=== PATIENT | female | born 1930 | race Caucasian/White ===

== ENCOUNTER 2016-10-10 04:14 | Inpatient (IN) | payer OTHER ==
[~2016-10-10] VITALS: Ht 165.1 cm; Wt 118.1 kg
[~2016-10-10 04:14] MED LIST: ANUSOL HC,ANUCO25 MG PR; COUMADIN,JANTOVE1 MG PO; COUMADIN2 MG PO; DULCOLAX5 MG PO; ERGOCALCIF50000 UNIT; K-DUR10 MEQ PO; LASIX40 MG PO; LOPRESSOR12.5 MG PO; LOPRESSOR25 MG PO; METRO GEL 1%60 GM TP; POTASSIUM PO; SYNTHROID125 MCG PO; SYNTHROID75 MCG PO; VITAMIN D1000 UNIT PO
[2016-10-10 05:20] LABS: INTER. NORMALIZED RATIO 1.1; PROTHROMBIN TIME 10.7 (9.2-11.2); PTT 28.4 (25-32)
[2016-10-10 05:21] LABS: CHLORIDE 105 mEq/L (99-109); POTASSIUM 3.7 mEq/L (3.7-5.4); SODIUM 142 mEq/L (136-147)
[2016-10-10 05:22] LABS: GLUCOSE 115 mg/dL (70-99)
[2016-10-10 05:24] LABS: ANION GAP 10 MEQ/L (2-14)
[2016-10-10 05:26] LABS: GFR ESTIMATE (CALCULATED) > 59 mL/min/
[2016-10-10 05:27] LABS: UREA NITROGEN (BUN) 13 mg/dL (9-23)
[2016-10-10 05:32] LABS: BASOPHIL COUNT 0.1 K/uL (0-0.1); EOSINOPHIL (%) 1.8 % (0-5); EOSINOPHIL COUNT 0.1 K/uL (0-0.3); HEMATOCRIT 41.8 % (36.0-46.0); IMMATURE GRANULOCYTE (%) 0.1 % (0.0-0.7); IMMATURE GRANULOCYTE COUNT 0.1 K/uL; LYMPHOCYTE COUNT 1.5 K/uL (1.0-2.8); MCH 31.7 PG (29.0-34.0); MCHC 33.3 G/DL (30.0-36.0); MCV 95.2 FL (83-99); MEAN PLAT.VOLUME 10.6 uM^3 (9.5-12.4); MONOCYTE (%) 6.3 % (3-12); MONOCYTE COUNT 0.5 K/uL (0-0.8); NEUTROPHIL (%) 71.9 % (45-76); NEUTROPHIL COUNT 5.6 K/uL (1.8-6.4); PLATELET COUNT 190 K/uL (156-360); RBC DIS.WIDTH-CV 13.8 % (11.8-14.6); RED BLOOD COUNT 4.39 M/uL (3.80-5.20); WHITE BLOOD COUNT 7.8 K/uL (4.1-10.2)
[2016-10-10] MEDS ORDERED: ZITHROMAX Z-PA250 MG PO (08:09)
[2016-10-10] MEDS ORDERED: MUCINEX1200 MG PO (08:09)
[2016-10-10] MEDS ORDERED: MOTRIN600 MG PO (08:09)
[2016-10-10 15:54] VITALS: BP 97/56
[2016-10-10 17:21] LABS: HDL CHOLESTEROL 58 MG/DL (Desirable>=50); LDL CHOLESTEROL 79 mg/dL (Desirable<100); NON-HDL CHOLESTEROL 104 mg/dL (Desirable<160); TOTAL CHOLESTEROL 162 mg/dL (Desirable<200); TRIGLYCERIDES 126 MG/DL (Normal: <150)
[2016-10-11 00:47] VITALS: BP 129/65
[2016-10-11 06:32] LABS: INTER. NORMALIZED RATIO 1.1; PROTHROMBIN TIME 11.2 (9.2-11.2)
[2016-10-11 07:37] VITALS: BP 133/77
[2016-10-11] MEDS ORDERED: WARFARIN SODIUM3 MG PO (12:59)
[2016-10-11 15:00] VITALS: BP 138/74
[2016-10-11 22:48] VITALS: BP 119/58
[2016-10-12 08:11] VITALS: BP 134/94
[2016-10-12 12:28] LABS: INTER. NORMALIZED RATIO 1.1; PROTHROMBIN TIME 10.9 (9.2-11.2)
[2016-10-12 15:47] VITALS: BP 156/92
[2016-10-12 17:34] LABS: ADD MIUA? YES; BACTERIA NONE SEEN /HPF; BILIRUBIN NEGATIVE; BLOOD NEGATIVE; COLOR STRAW ((YELLOW)); EPITHELIAL CELLS NONE SEEN /HPF; GLUCOSE (STRIP) NEGATIVE; KETONES NEGATIVE; LEUKOCYTES TRACE; MUCUS NONE SEEN /LPF; NITRITE NEGATIVE; PROTEIN (STRIP) NEGATIVE; RED BLOOD CELLS 0-5 /HPF (0-5); SPECIFIC GRAVITY 1.006 (1.000-1.030); UCUL ADDED? NO; UROBILINOGEN 0.2 MG/DL (0.2-1.0)
[2016-10-12 17:35] LABS: WHITE BLOOD CELLS 0-5 /HPF (0-5)
[2016-10-12 18:18] LABS: C DIFF TOXIN NEGATIVE (NEGATIVE); PROBE CHECK PASS; SPECIMEN PROCESSING CONTROL PASS
[2016-10-12 22:59] VITALS: BP 106/57
[2016-10-13 07:15] VITALS: BP 127/72
[2016-10-13 07:25] LABS: INTER. NORMALIZED RATIO 1.2; PROTHROMBIN TIME 12.7 (9.2-11.2)
[2016-10-13 15:03] VITALS: BP 132/73
[2016-10-13 22:11] VITALS: BP 109/55
[2016-10-14 07:21] LABS: INTER. NORMALIZED RATIO 1.3; PROTHROMBIN TIME 13.3 (9.2-11.2)
[2016-10-14 07:50] VITALS: BP 120/68
[2016-10-14 12:45] VITALS: BP 139/81
[2016-10-14 16:34] VITALS: BP 148/79
[2016-10-14 22:45] VITALS: BP 105/62
[2016-10-15 07:35] LABS: INTER. NORMALIZED RATIO 1.2; PROTHROMBIN TIME 12.6 (9.2-11.2)
[2016-10-15 07:59] VITALS: BP 132/70
[2016-10-15 16:14] VITALS: BP 159/96
[2016-10-15 18:11] LABS: ADD MIUA? YES; BILIRUBIN NEGATIVE; BLOOD MODERATE; COLOR YELLOW ((YELLOW)); GLUCOSE (STRIP) NEGATIVE; KETONES 15; LEUKOCYTES NEGATIVE; NITRITE NEGATIVE; PH, URINE 5.5 (5-8); PROTEIN (STRIP) TRACE; SPECIFIC GRAVITY 1.015 (1.000-1.030)
[2016-10-15 18:30] LABS: BACTERIA 1+ /HPF; EPITHELIAL CELLS RARE /HPF; MUCUS TRACE /LPF; RED BLOOD CELLS 0-5 /HPF (0-5); UCUL ADDED? NO; WHITE BLOOD CELLS 0-5 /HPF (0-5)
[2016-10-15 22:57] VITALS: BP 105/58
[2016-10-16 00:13] LABS: EOSINOPHIL (%) 0.1 % (0-5); HEMATOCRIT 39.4 % (36.0-46.0); IMMATURE GRANULOCYTE (%) 0.5 % (0.0-0.7); IMMATURE GRANULOCYTE COUNT 0.6 K/uL; LYMPHOCYTE COUNT 1.7 K/uL (1.0-2.8); MCH 31.7 PG (29.0-34.0); MCV 93.1 FL (83-99); MEAN PLAT.VOLUME 10.6 uM^3 (9.5-12.4); MONOCYTE (%) 14.6 % (3-12); MONOCYTE COUNT 1.6 K/uL (0-0.8); NEUTROPHIL (%) 69.2 % (45-76); NEUTROPHIL COUNT 7.8 K/uL (1.8-6.4); PLATELET COUNT 204 K/uL (156-360); RBC DIS.WIDTH-CV 12.9 % (11.8-14.6); RBC DIS.WIDTH-SD 42.7 % (39-53); RED BLOOD COUNT 4.23 M/uL (3.80-5.20); WHITE BLOOD COUNT 11.2 K/uL (4.1-10.2)
[2016-10-16 00:22] LABS: POTASSIUM 3.2 mEq/L (3.7-5.4); SODIUM 135 mEq/L (136-147)
[2016-10-16 00:24] LABS: GLUCOSE 108 mg/dL (70-99)
[2016-10-16 00:25] LABS: ANION GAP 13 MEQ/L (2-14); CHLORIDE 93 mEq/L (99-109)
[2016-10-16 00:28] LABS: GFR ESTIMATE (CALCULATED) 50 mL/min/
[2016-10-16 00:29] LABS: UREA NITROGEN (BUN) 20 mg/dL (9-23)
[2016-10-16 06:38] LABS: INTER. NORMALIZED RATIO 1.4
[2016-10-16 08:40] VITALS: BP 130/75
[2016-10-16 16:00] VITALS: BP 134/68
[2016-10-16 22:55] VITALS: BP 98/56
[2016-10-16 23:13] VITALS: BP 102/60
[2016-10-17 06:56] LABS: INTER. NORMALIZED RATIO 1.3; PROTHROMBIN TIME 13.8 (9.2-11.2)
[2016-10-17 08:03] VITALS: BP 102/58
[2016-10-17 16:15] VITALS: BP 100/52
[2016-10-17 23:06] VITALS: BP 101/63
[2016-10-18 08:26] VITALS: BP 103/62
[2016-10-18] MEDS ORDERED: TYLENOL REGULA325 MG PO (11:56)
[2016-10-18] MEDS ORDERED: ELIQUIS5 MG PO (12:00)
== END 2016-10-18 14:15 | DRG 554 ==
LOC: EME 04:14 → 5EAST 12:55 → EDOF 12:55 → 5EAST 12:55
PROVIDERS: Internal Medicine; Personal Emergency Response Attendant
DX: M17.0 Bilateral primary osteoarthritis of knee (principal); I82.511 Chronic embolism and thrombosis of right femoral vein; F05 Delirium due to known physiological condition; Z68.41 Body mass index [BMI] 40.0-44.9, adult; J01.90 Acute sinusitis, unspecified; G47.33 Obstructive sleep apnea (adult) (pediatric); M71.22 Synovial cyst of popliteal space [Baker], left knee; I10 Essential (primary) hypertension; E03.9 Hypothyroidism, unspecified; E66.9 Obesity, unspecified; R09.02 Hypoxemia; F03.90 Unspecified dementia, unspecified severity, without behavioral disturbance, psychotic disturbance, mood disturbance, and anxiety; M25.462 Effusion, left knee; F41.9 Anxiety disorder, unspecified; Z79.01 Long term (current) use of anticoagulants; Z96.651 Presence of right artificial knee joint; Z99.3 Dependence on wheelchair
CPT/HCPCS: 70450; 71020; 73110; 73560; 73721; 80048; 80061; 81003; 84439; 84443; 85025; 85610; 85730; 87493; 93005; 93970; 93971; 94799; 99281; 99285; J1885; J2060; J2270; J2405; J7030

== ENCOUNTER 2016-10-19 14:58 | Observation (INO) | payer OTHER ==
[~2016-10-19] VITALS: Ht 162.6 cm; Wt 109.0 kg
[~2016-10-19 14:58] MED LIST changes: +ELIQUIS5 MG PO; +MOTRIN600 MG PO; +MUCINEX1200 MG PO; +TYLENOL REGULA325 MG PO; +WARFARIN SODIUM3 MG PO; +ZITHROMAX Z-PA250 MG PO
[2016-10-19 16:24] LABS: EOSINOPHIL (%) 0.9 % (0-5); EOSINOPHIL COUNT 0.1 K/uL (0-0.3); HEMATOCRIT 42.7 % (36.0-46.0); IMMATURE GRANULOCYTE (%) 0.6 % (0.0-0.7); IMMATURE GRANULOCYTE COUNT 0.4 K/uL; LYMPHOCYTE COUNT 1.2 K/uL (1.0-2.8); MCH 31.2 PG (29.0-34.0); MCHC 33.5 G/DL (30.0-36.0); MCV 93.2 FL (83-99); MEAN PLAT.VOLUME 9.7 uM^3 (9.5-12.4); MONOCYTE (%) 12.1 % (3-12); MONOCYTE COUNT 0.8 K/uL (0-0.8); NEUTROPHIL (%) 68.4 % (45-76); NEUTROPHIL COUNT 4.7 K/uL (1.8-6.4); RBC DIS.WIDTH-CV 13.4 % (11.8-14.6); RBC DIS.WIDTH-SD 44.5 % (39-53); RED BLOOD COUNT 4.58 M/uL (3.80-5.20)
[2016-10-19 16:25] LABS: PLATELET COUNT 380 K/uL (156-360); WHITE BLOOD COUNT 6.9 K/uL (4.1-10.2)
[2016-10-19 16:31] LABS: CHLORIDE 93 mEq/L (99-109); SODIUM 139 mEq/L (136-147)
[2016-10-19 16:34] LABS: GLUCOSE 101 mg/dL (70-99)
[2016-10-19 16:35] LABS: ANION GAP 17 MEQ/L (2-14); TOTAL BILIRUBIN 0.9 mg/dL (0.0-1.0)
[2016-10-19 16:37] LABS: ALKALINE PHOSPHATASE 117 IU/L (3-129); GFR ESTIMATE (CALCULATED) 45 mL/min/
[2016-10-19 16:38] LABS: POTASSIUM 4.1 mEq/L (3.7-5.4)
[2016-10-19 16:39] LABS: UREA NITROGEN (BUN) 43 mg/dL (9-23)
[2016-10-19 18:50] LABS: ADD MIUA? YES; BILIRUBIN NEGATIVE; BLOOD SMALL; COLOR YELLOW ((YELLOW)); GLUCOSE (STRIP) NEGATIVE; KETONES NEGATIVE; LEUKOCYTES NEGATIVE; NITRITE NEGATIVE; PROTEIN (STRIP) NEGATIVE; SPECIFIC GRAVITY 1.011 (1.000-1.030); UROBILINOGEN 0.2 MG/DL (0.2-1.0)
[2016-10-19 19:00] LABS: BACTERIA NONE SEEN /HPF; EPITHELIAL CELLS 1+ /HPF; HYALINE CASTS 0-5 /LPF; MUCUS TRACE /LPF; RED BLOOD CELLS 0-5 /HPF (0-5); WHITE BLOOD CELLS 0-5 /HPF (0-5)
[2016-10-20] MEDS ORDERED: POTASSIUM CHLO10 ME4 PO (01:43)
[2016-10-20] MEDS ORDERED: FUROSEMIDE40 MG PO (01:43)
[2016-10-20] MEDS ORDERED: LEVOTHYROXINE125 MCG PO (01:43)
[2016-10-20] MEDS ORDERED: METOPROLOL TART25 MG PO (01:44)
[2016-10-20] MEDS ORDERED: ELIQUIS5 MG PO (01:44)
[2016-10-20] MEDS ORDERED: ACETAMINOPHEN325 M1 PO (01:45)
[2016-10-20] MEDS ORDERED: DULCOLAX10 MG PR (01:45)
[2016-10-20] MEDS ORDERED: FLEET ENEMA-AD118 ML PR (01:46)
[2016-10-20] MEDS ORDERED: MILK OF MAGN PO (01:48)
[2016-10-20] MEDS ORDERED: TRAMADOL HCL50 MG PO (01:48)
[2016-10-20 03:30] VITALS: BP 166/97
[2016-10-20 04:25] VITALS: BP 166/97
[2016-10-20 11:47] VITALS: BP 117/67
[2016-10-20 17:41] VITALS: BP 122/77
[2016-10-20 18:24] LABS: C DIFF TOXIN ND (NEGATIVE)
[2016-10-20 20:01] VITALS: BP 101/51
[2016-10-21 00:10] VITALS: BP 101/61
[2016-10-21 05:40] VITALS: BP 179/80
[2016-10-21 08:43] VITALS: BP 168/82
[2016-10-21 11:49] LABS: POINT-OF-CARE METER ID UU13113702
[2016-10-21 11:54] VITALS: BP 154/82
[2016-10-21] MEDS ORDERED: LEVO-T137 MCG PO (15:55)
== END 2016-10-21 17:41 ==
LOC: EME → EDBD 14:58 → 3EAST 10-20 00:47 → EDOF 10-20 00:47 → 3EAST 10-20 03:14
PROVIDERS: Emergency Medicine; Internal Medicine
DX: R41.82 Altered mental status, unspecified (principal); E86.0 Dehydration; I82.511 Chronic embolism and thrombosis of right femoral vein; E66.9 Obesity, unspecified; Z68.41 Body mass index [BMI] 40.0-44.9, adult; M17.11 Unilateral primary osteoarthritis, right knee; I10 Essential (primary) hypertension; G47.30 Sleep apnea, unspecified
CPT/HCPCS: 70450; 71010; 80053; 81003; 82948; 83605; 84439; 84443; 85025; 87493; 94799; 99281; 99285; G0378; J7030

== ENCOUNTER 2016-11-18 04:33 | Emergency (ER) | payer OTHER ==
[~2016-11-18] VITALS: Ht 165.1 cm; Wt 101.6 kg
[~2016-11-18 04:33] MED LIST changes: +ACETAMINOPHEN325 M1 PO; +DULCOLAX10 MG PR; +FLEET ENEMA-AD118 ML PR; +FUROSEMIDE40 MG PO; +LEVO-T137 MCG PO; +LEVOTHYROXINE125 MCG PO; +METOPROLOL TART25 MG PO; +MILK OF MAGN PO; +POTASSIUM CHLO10 ME4 PO; +TRAMADOL HCL50 MG PO
[2016-11-18 04:55] LABS: EOSINOPHIL (%) 1.6 % (0-5); EOSINOPHIL COUNT 0.1 K/uL (0-0.3); IMMATURE GRANULOCYTE (%) 0.4 % (0.0-0.7); INSTRUMENT ABS NEUTROPHIL CT 3.1 K/uL; LYMPHOCYTE COUNT 1.9 K/uL (1.0-2.8); MCH 30.4 PG (29.0-34.0); MCHC 32.2 G/DL (30.0-36.0); MCV 94.5 FL (83-99); MEAN PLAT.VOLUME 10.3 uM^3 (9.5-12.4); MONOCYTE (%) 7.6 % (3-12); MONOCYTE COUNT 0.4 K/uL (0-0.8); NEUTROPHIL (%) 55.7 % (45-76); NEUTROPHIL COUNT 3.1 K/uL (1.8-6.4); RBC DIS.WIDTH-CV 13.4 % (11.8-14.6); RBC DIS.WIDTH-SD 46.5 % (39-53); RED BLOOD COUNT 4.34 M/uL (3.80-5.20); WHITE BLOOD COUNT 5.5 K/uL (4.1-10.2)
[2016-11-18 05:05] LABS: PROTHROMBIN TIME 10.5 (9.2-11.2); PTT 27.3 (25-32)
[2016-11-18 05:12] LABS: CHLORIDE 109 mEq/L (99-109); POTASSIUM 4.2 mEq/L (3.7-5.4); SODIUM 141 mEq/L (136-147)
[2016-11-18 05:14] LABS: GLUCOSE 122 mg/dL (70-99); TROP-I INTERPRETATION NEGATIVE; TROPONIN-I < 0.01 ng/mL (0.0-0.30)
[2016-11-18 05:16] LABS: ANION GAP 11 MEQ/L (2-14); TOTAL BILIRUBIN 0.8 mg/dL (0.0-1.0)
[2016-11-18 05:18] LABS: ALKALINE PHOSPHATASE 61 IU/L (3-129); GFR ESTIMATE (CALCULATED) > 59 mL/min/
[2016-11-18 05:19] LABS: UREA NITROGEN (BUN) 13 mg/dL (9-23)
[2016-11-18 05:21] LABS: LIPASE 16 U/L (1.0-51.0)
[2016-11-18 06:17] LABS: PLATELET COUNT ND K/uL (156-360)
[2016-11-18 06:19] VITALS: BP 114/82
[2016-11-18] MEDS ORDERED: PEPCID20 MG PO (06:25)
== END 2016-11-18 06:37 | disposition home or self-care (01) ==
LOC: EME → EDBD 04:33 → EME 06:37
PROVIDERS: Emergency Medicine
DX: N95.0 Postmenopausal bleeding (principal); K92.2 Gastrointestinal hemorrhage, unspecified; I10 Essential (primary) hypertension; I50.9 Heart failure, unspecified; Z86.718 Personal history of other venous thrombosis and embolism; Z79.01 Long term (current) use of anticoagulants
CPT/HCPCS: 74177; 76856; 80053; 81003; 83690; 84484; 85025; 85610; 85730; 86850; 86900; 86901; 99281; 99284; J7030

== ENCOUNTER 2017-06-01 14:51 | Emergency (ER) | payer OTHER ==
[~2017-06-01] VITALS: Ht 160 cm; Wt 116.8 kg
[~2017-06-01 14:51] MED LIST changes: +PEPCID20 MG PO
[2017-06-01 15:23] LABS: HEMATOCRIT 38.6 % (36.0-46.0); MCHC 32.6 G/DL (30.0-36.0); MCV 91.9 FL (83-99); MEAN PLAT.VOLUME 9.9 uM^3 (9.5-12.4); PLATELET COUNT 212 K/uL (156-360); RBC DIS.WIDTH-CV 13.2 % (11.8-14.6); RBC DIS.WIDTH-SD 44.5 % (39-53); WHITE BLOOD COUNT 5.7 K/uL (4.1-10.2)
[2017-06-01 15:35] LABS: CHLORIDE 102 mEq/L (99-109); POTASSIUM 2.9 mEq/L (3.7-5.4); SODIUM 141 mEq/L (136-147)
[2017-06-01 15:36] LABS: GLUCOSE 94 mg/dL (70-99)
[2017-06-01 15:38] LABS: ANION GAP 11 MEQ/L (2-14)
[2017-06-01 15:40] LABS: GFR ESTIMATE (CALCULATED) > 59 mL/min/
[2017-06-01 15:41] LABS: UREA NITROGEN (BUN) 12 mg/dL (9-23)
[2017-06-01 20:51] VITALS: BP 145/80
== END 2017-06-01 20:51 | disposition home or self-care (01) ==
LOC: EME 14:51
PROVIDERS: Emergency Medicine
DX: R60.0 Localized edema (principal); I11.0 Hypertensive heart disease with heart failure; I50.9 Heart failure, unspecified; Z86.718 Personal history of other venous thrombosis and embolism; Z88.8 Allergy status to other drugs, medicaments and biological substances
CPT/HCPCS: 71010; 71260; 74177; 80048; 83880; 85027; 93005; 99281; 99285

== ENCOUNTER 2017-07-04 23:25 | Observation (INO) | payer OTHER ==
[~2017-07-04] VITALS: Ht 165.1 cm; Wt 119.2 kg
[2017-07-05 00:05] LABS: HEMATOCRIT 37.7 % (36.0-46.0); MCH 30.1 PG (29.0-34.0); MCHC 32.6 G/DL (30.0-36.0); MCV 92.2 FL (83-99); MEAN PLAT.VOLUME 9.9 uM^3 (9.5-12.4); PLATELET COUNT 199 K/uL (156-360); RBC DIS.WIDTH-CV 13.5 % (11.8-14.6); RBC DIS.WIDTH-SD 46.7 % (39-53); RED BLOOD COUNT 4.09 M/uL (3.80-5.20); WHITE BLOOD COUNT 6.5 K/uL (4.1-10.2)
[2017-07-05 00:15] LABS: CHLORIDE 106 mEq/L (99-109); PROTHROMBIN TIME 11.8 SEC (10.2-12.9); SODIUM 142 mEq/L (136-147)
[2017-07-05 00:18] LABS: GLUCOSE 111 mg/dL (70-99); PTT 29.5 SEC (25-37)
[2017-07-05 00:19] LABS: ANION GAP 8 MEQ/L (2-14)
[2017-07-05 00:20] LABS: TOTAL BILIRUBIN 0.6 mg/dL (0.0-1.0)
[2017-07-05 00:21] LABS: ALKALINE PHOSPHATASE 81 IU/L (3-129); GFR ESTIMATE (CALCULATED) > 59 mL/min/
[2017-07-05 00:22] LABS: UREA NITROGEN (BUN) 10 mg/dL (9-23)
[2017-07-05 00:24] LABS: TROP-I INTERPRETATION NEGATIVE; TROPONIN-I < 0.01 ng/mL (0.0-0.30)
[2017-07-05 00:25] LABS: LIPASE 17 U/L (1.0-51.0)
[2017-07-05 02:42] LABS: ADD MIUA? YES; BILIRUBIN NEGATIVE; BLOOD NEGATIVE; COLOR YELLOW ((YELLOW)); GLUCOSE (STRIP) NEGATIVE; KETONES NEGATIVE; LEUKOCYTES NEGATIVE; NITRITE NEGATIVE; PROTEIN (STRIP) NEGATIVE; SPECIFIC GRAVITY 1.016 (1.000-1.030); UROBILINOGEN 0.2 MG/DL (0.2-1.0)
[2017-07-05 02:52] LABS: BACTERIA NONE SEEN /HPF; EPITHELIAL CELLS RARE /HPF; MUCUS TRACE /LPF; RED BLOOD CELLS 0-5 /HPF (0-5); UCUL ADDED? NO; WHITE BLOOD CELLS 0-5 /HPF (0-5)
[2017-07-05 05:01] VITALS: BP 133/84
[2017-07-05 07:30] VITALS: BP 133/92
[2017-07-05] MEDS ORDERED: ALDACTONE50 MG PO (10:48)
[2017-07-05] MEDS ORDERED: MECLIZINE HCL25 MG PO (10:49)
[2017-07-05 11:10] VITALS: BP 106/65
[2017-07-05 12:17] LABS: ANION GAP 8 MEQ/L (2-14); CHLORIDE 107 MEQ/L (99-109); GFR ESTIMATE (CALCULATED) > 59 mL/min/; GLUCOSE 94 mg/dL (70-99); POTASSIUM 3.6 MEQ/L (3.7-5.4); SAMPLE HEMOLYSIS CHECK 0; SAMPLE ICTERIC CHECK 0; SAMPLE LIPEMIA CHECK 0; SODIUM 141 MEQ/L (136-147); UREA NITROGEN (BUN) 8 mg/dL (9-23)
[2017-07-05 15:50] VITALS: BP 128/71
[2017-07-05 20:00] VITALS: BP 135/75
[2017-07-06 03:00] VITALS: BP 130/70
[2017-07-06 08:08] VITALS: BP 143/74
== END 2017-07-06 15:48 | disposition home or self-care (01) ==
LOC: EME → EDBD 23:25 → EDOF 07-05 03:30 → ENRESERV 07-05 03:42 → 5WEST 07-05 04:46
PROVIDERS: Emergency Medicine; Family Medicine
DX: E87.6 Hypokalemia (principal); R42 Dizziness and giddiness; F03.90 Unspecified dementia, unspecified severity, without behavioral disturbance, psychotic disturbance, mood disturbance, and anxiety; R60.0 Localized edema; E03.9 Hypothyroidism, unspecified; Z91.81 History of falling; S00.83XA Contusion of other part of head, initial encounter; Z95.828 Presence of other vascular implants and grafts; I11.0 Hypertensive heart disease with heart failure; I50.9 Heart failure, unspecified; G89.29 Other chronic pain; Z96.651 Presence of right artificial knee joint; M19.90 Unspecified osteoarthritis, unspecified site; E66.9 Obesity, unspecified; Z86.718 Personal history of other venous thrombosis and embolism; Z90.49 Acquired absence of other specified parts of digestive tract; Z79.01 Long term (current) use of anticoagulants; Z88.5 Allergy status to narcotic agent
CPT/HCPCS: 70450; 80048; 80053; 81003; 83690; 84484; 85027; 85610; 85730; 93005; 94799; 99281; 99285; G0378; J3480; J7030

== ENCOUNTER 2017-07-09 12:01 | Inpatient (IN) | payer OTHER ==
[~2017-07-09] VITALS: Ht 165.1 cm; Wt 109.1 kg
[~2017-07-09 12:01] MED LIST changes: +ALDACTONE50 MG PO; +MECLIZINE HCL25 MG PO
[2017-07-09 12:42] LABS: ADD MIUA? YES; BILIRUBIN NEGATIVE; BLOOD SMALL; COLOR YELLOW ((YELLOW)); GLUCOSE (STRIP) NEGATIVE; KETONES 20; LEUKOCYTES MODERATE; NITRITE NEGATIVE; PROTEIN (STRIP) 30; SPECIFIC GRAVITY 1.013 (1.000-1.030); UROBILINOGEN 0.2 MG/DL (0.2-1.0)
[2017-07-09 12:48] LABS: BACTERIA RARE /HPF; EPITHELIAL CELLS 3+ /HPF; MUCUS TRACE /LPF; RED BLOOD CELLS 0-5 /HPF (0-5); UCUL ADDED? YES
[2017-07-09] MEDS ORDERED: IBUPROFEN600 MG PO (13:32)
[2017-07-09] MEDS ORDERED: WARFARIN SODIUM2 MG PO (13:32)
[2017-07-09 13:38] LABS: BASOPHIL COUNT 0.1 K/uL (0-0.1); EOSINOPHIL (%) 0.5 % (0-5); HEMATOCRIT 42.3 % (36.0-46.0); IMMATURE GRANULOCYTE COUNT 0.1 K/uL; MCHC 32.4 G/DL (30.0-36.0); MCV 92.8 FL (83-99); MEAN PLAT.VOLUME 10.2 uM^3 (9.5-12.4); MONOCYTE (%) 8.7 % (3-12); MONOCYTE COUNT 0.7 K/uL (0-0.8); PLATELET COUNT 225 K/uL (156-360); RBC DIS.WIDTH-CV 13.5 % (11.8-14.6); RBC DIS.WIDTH-SD 46.2 % (39-53); RED BLOOD COUNT 4.56 M/uL (3.80-5.20); WHITE BLOOD COUNT 7.8 K/uL (4.1-10.2)
[2017-07-09 14:02] LABS: CHLORIDE 100 mEq/L (99-109); SODIUM 139 mEq/L (136-147)
[2017-07-09 14:04] LABS: GLUCOSE 87 mg/dL (70-99)
[2017-07-09 14:05] LABS: ANION GAP 12 MEQ/L (2-14)
[2017-07-09 14:07] LABS: GFR ESTIMATE (CALCULATED) > 59 mL/min/
[2017-07-09 14:08] LABS: UREA NITROGEN (BUN) 15 mg/dL (9-23)
[2017-07-09 14:10] LABS: POTASSIUM 4.8 mEq/L (3.7-5.4)
[2017-07-09 14:32] LABS: AMPHETAMINE NEGATIVE (500 ng/mL); BARBITURATES NEGATIVE (200 ng/mL); BENZODIAZEPINES NEGATIVE (150 ng/mL); COCAINE NEGATIVE (150 ng/mL); INTERNAL CONTROLS VALID? YES; METHADONE NEGATIVE (200 ng/mL); METHAMPHETAMINE NEGATIVE (500 ng/mL); OPIATES (MORPHINE) NEGATIVE (100 ng/mL); OXYCODONE PRESUMPTIVE POSITIVE (100 ng/mL); PHENCYCLIDINE NEGATIVE (25 ng/mL); PROPOXYPHENE NEGATIVE (300 ng/mL); THC CANNABINOIDS NEGATIVE (50 ng/mL); TRICYCLIC ANTIDEPRESSANTS NEGATIVE (300 ng/mL)
[2017-07-09] MEDS ORDERED: LEVOTHYROXINE125 MCG PO (14:43)
[2017-07-09] MEDS ORDERED: FUROSEMIDE40 MG PO ×2 (14:45→14:46)
[2017-07-09 17:30] VITALS: BP 162/88
[2017-07-10 06:06] LABS: HEMATOCRIT 40.5 % (36.0-46.0); MCH 30.2 PG (29.0-34.0); MCHC 33.1 G/DL (30.0-36.0); MCV 91.4 FL (83-99); RBC DIS.WIDTH-CV 13.7 % (11.8-14.6); RBC DIS.WIDTH-SD 45.6 % (39-53); RED BLOOD COUNT 4.43 M/uL (3.80-5.20); WHITE BLOOD COUNT 7.5 K/uL (4.1-10.2)
[2017-07-10 06:13] LABS: EOSINOPHIL (%) 1.5 % (0-5); EOSINOPHIL COUNT 0.1 K/uL (0-0.3); IMMATURE GRANULOCYTE (%) 0.4 % (0.0-0.7); INSTRUMENT ABS NEUTROPHIL CT 5.3 K/uL; LYMPHOCYTE COUNT 1.3 K/uL (1.0-2.8); MONOCYTE COUNT 0.8 K/uL (0-0.8); NEUTROPHIL (%) 70.7 % (45-76); NEUTROPHIL COUNT 5.3 K/uL (1.8-6.4)
[2017-07-10 06:28] LABS: ANION GAP 11 MEQ/L (2-14); CHLORIDE 102 MEQ/L (99-109); GFR ESTIMATE (CALCULATED) > 59 mL/min/; GLUCOSE 92 mg/dL (70-99); SAMPLE HEMOLYSIS CHECK 0; SAMPLE ICTERIC CHECK 0; SAMPLE LIPEMIA CHECK 0; SODIUM 140 MEQ/L (136-147); UREA NITROGEN (BUN) 17 mg/dL (9-23)
[2017-07-10 08:04] VITALS: BP 126/70
[2017-07-10 19:47] LABS: PLAT.SUFFICIENCY ADEQUATE; PLATELET CLUMPS PRESENT - PLATELET COUNT APPEARS ADQ.
[2017-07-10 19:48] LABS: PLATELET COUNT UNABLE TO REPORT K/uL (156-360)
[2017-07-11 06:02] LABS: BASOPHIL COUNT 0.1 K/uL (0-0.1); EOSINOPHIL (%) 2.6 % (0-5); EOSINOPHIL COUNT 0.1 K/uL (0-0.3); HEMATOCRIT 49.4 % (36.0-46.0); IMMATURE GRANULOCYTE (%) 0.2 % (0.0-0.7); LYMPHOCYTE COUNT 1.2 K/uL (1.0-2.8); MCH 29.4 PG (29.0-34.0); MCV 91.8 FL (83-99); MEAN PLAT.VOLUME 10.5 uM^3 (9.5-12.4); MONOCYTE (%) 11.9 % (3-12); MONOCYTE COUNT 0.6 K/uL (0-0.8); NEUTROPHIL (%) 60.3 % (45-76); RBC DIS.WIDTH-CV 13.9 % (11.8-14.6); RBC DIS.WIDTH-SD 47.3 % (39-53)
[2017-07-11 06:03] LABS: PLATELET COUNT 182 K/uL (156-360); RED BLOOD COUNT 5.38 M/uL (3.80-5.20)
[2017-07-11 06:20] LABS: ANION GAP 11 MEQ/L (2-14); CHLORIDE 102 MEQ/L (99-109); GFR ESTIMATE (CALCULATED) 50 mL/min/; GLUCOSE 110 mg/dL (70-99); SAMPLE HEMOLYSIS CHECK 0; SAMPLE ICTERIC CHECK 0; SAMPLE LIPEMIA CHECK 0; SODIUM 141 MEQ/L (136-147); UREA NITROGEN (BUN) 20 mg/dL (9-23)
[2017-07-11 07:37] VITALS: BP 126/68
[2017-07-11 11:33] VITALS: BP 110/78
[2017-07-11 20:23] VITALS: BP 128/72
[2017-07-12 00:36] VITALS: BP 128/74
[2017-07-12 06:50] LABS: ANION GAP 10 MEQ/L (2-14); CHLORIDE 100 MEQ/L (99-109); GFR ESTIMATE (CALCULATED) 56 mL/min/; GLUCOSE 104 mg/dL (70-99); POTASSIUM 3.5 MEQ/L (3.7-5.4); SAMPLE HEMOLYSIS CHECK 0; SAMPLE ICTERIC CHECK 0; SAMPLE LIPEMIA CHECK 0; SODIUM 138 MEQ/L (136-147); UREA NITROGEN (BUN) 20 mg/dL (9-23)
[2017-07-12 07:09] LABS: BASOPHIL COUNT 0.1 K/uL (0-0.1); EOSINOPHIL (%) 2.6 % (0-5); EOSINOPHIL COUNT 0.2 K/uL (0-0.3); HEMATOCRIT 39.2 % (36.0-46.0); IMMATURE GRANULOCYTE (%) 0.2 % (0.0-0.7); INSTRUMENT ABS NEUTROPHIL CT 3.1 K/uL; LYMPHOCYTE COUNT 1.9 K/uL (1.0-2.8); MCHC 32.7 G/DL (30.0-36.0); MCV 91.8 FL (83-99); MEAN PLAT.VOLUME 10.2 uM^3 (9.5-12.4); MONOCYTE (%) 10.4 % (3-12); MONOCYTE COUNT 0.6 K/uL (0-0.8); NEUTROPHIL (%) 53.8 % (45-76); NEUTROPHIL COUNT 3.1 K/uL (1.8-6.4); PLATELET COUNT 253 K/uL (156-360); RBC DIS.WIDTH-CV 13.8 % (11.8-14.6); RBC DIS.WIDTH-SD 46.9 % (39-53); RED BLOOD COUNT 4.27 M/uL (3.80-5.20); WHITE BLOOD COUNT 5.8 K/uL (4.1-10.2)
[2017-07-12 07:33] VITALS: BP 126/69
[2017-07-12 16:04] VITALS: BP 132/64
[2017-07-13 00:19] VITALS: BP 140/70
[2017-07-13 06:38] LABS: ANION GAP 12 MEQ/L (2-14); CHLORIDE 104 MEQ/L (99-109); GFR ESTIMATE (CALCULATED) > 59 mL/min/; GLUCOSE 112 mg/dL (70-99); POTASSIUM 3.8 MEQ/L (3.7-5.4); SAMPLE HEMOLYSIS CHECK 0; SAMPLE ICTERIC CHECK 0; SAMPLE LIPEMIA CHECK 0; SODIUM 142 MEQ/L (136-147); UREA NITROGEN (BUN) 18 mg/dL (9-23)
[2017-07-13 08:23] VITALS: BP 109/62
[2017-07-13 16:46] VITALS: BP 144/64
[2017-07-13 19:40] VITALS: BP 125/78
[2017-07-13 23:40] VITALS: BP 109/65
[2017-07-14 04:00] VITALS: BP 125/75
[2017-07-14 06:52] VITALS: BP 118/64
[2017-07-14 15:21] VITALS: BP 124/72
[2017-07-14 21:10] VITALS: BP 102/64
[2017-07-15 00:01] VITALS: BP 120/64
[2017-07-15 06:14] LABS: BASOPHIL COUNT 0.1 K/uL (0-0.1); EOSINOPHIL COUNT 0.3 K/uL (0-0.3); HEMATOCRIT 38.7 % (36.0-46.0); IMMATURE GRANULOCYTE (%) 0.2 % (0.0-0.7); INSTRUMENT ABS NEUTROPHIL CT 2.5 K/uL; LYMPHOCYTE COUNT 1.9 K/uL (1.0-2.8); MCH 29.3 PG (29.0-34.0); MCHC 31.5 G/DL (30.0-36.0); MEAN PLAT.VOLUME 9.9 uM^3 (9.5-12.4); MONOCYTE (%) 9.4 % (3-12); MONOCYTE COUNT 0.5 K/uL (0-0.8); NEUTROPHIL (%) 47.8 % (45-76); NEUTROPHIL COUNT 2.5 K/uL (1.8-6.4); PLATELET COUNT 255 K/uL (156-360); RBC DIS.WIDTH-CV 13.7 % (11.8-14.6); RBC DIS.WIDTH-SD 46.8 % (39-53); RED BLOOD COUNT 4.16 M/uL (3.80-5.20); WHITE BLOOD COUNT 5.2 K/uL (4.1-10.2)
[2017-07-15 06:42] LABS: ANION GAP 7 MEQ/L (2-14); CHLORIDE 106 MEQ/L (99-109); GFR ESTIMATE (CALCULATED) 50 mL/min/; GLUCOSE 105 mg/dL (70-99); POTASSIUM 4.4 MEQ/L (3.7-5.4); SAMPLE HEMOLYSIS CHECK 0; SAMPLE ICTERIC CHECK 0; SAMPLE LIPEMIA CHECK 0; SODIUM 140 MEQ/L (136-147); UREA NITROGEN (BUN) 23 mg/dL (9-23)
[2017-07-15 06:55] VITALS: BP 120/70
[2017-07-15] MEDS ORDERED: ELIQUIS5 MG PO (12:35)
[2017-07-15] MEDS ORDERED: HALDOL2 MG PO ×2 (12:36)
[2017-07-15] MEDS ORDERED: TRAMADOL HCL50 MG PO (12:37)
[2017-07-15 15:15] VITALS: BP 149/81
[2017-07-15 19:54] VITALS: BP 120/80
[2017-07-15 23:30] VITALS: BP 129/77
[2017-07-16 07:33] VITALS: BP 155/83
== END 2017-07-16 11:02 | DRG 690 ==
LOC: EME 12:01 → 5EAST 15:36 → EDOF 15:36 → ENRESERV 15:41 → 5EAST 17:04 → ENPENDDIS 07-16 11:30
PROVIDERS: Emergency Medicine; Family Medicine
DX: N39.0 Urinary tract infection, site not specified (principal); R00.0 Tachycardia, unspecified; R44.1 Visual hallucinations; M17.12 Unilateral primary osteoarthritis, left knee; F05 Delirium due to known physiological condition; F01.50 Vascular dementia, unspecified severity, without behavioral disturbance, psychotic disturbance, mood disturbance, and anxiety; Z96.651 Presence of right artificial knee joint; S60.222A Contusion of left hand, initial encounter; E03.9 Hypothyroidism, unspecified; E66.9 Obesity, unspecified; R26.2 Difficulty in walking, not elsewhere classified; G89.29 Other chronic pain; M25.562 Pain in left knee; R42 Dizziness and giddiness; F41.9 Anxiety disorder, unspecified; Z78.1 Physical restraint status; Z79.899 Other long term (current) drug therapy; Z68.41 Body mass index [BMI] 40.0-44.9, adult; Z75.1 Person awaiting admission to adequate facility elsewhere; Z74.01 Bed confinement status; Z86.718 Personal history of other venous thrombosis and embolism
CPT/HCPCS: 71010; 73130; 73560; 80048; 81003; 85025; 87086; 93005; 97530 GO; 97530 GP; 99281; 99285; G0378; J0696; J1630; J7050

== ENCOUNTER 2017-07-31 14:21 | Observation (INO) | payer OTHER ==
[~2017-07-31] VITALS: Ht 165.1 cm; Wt 116.0 kg
[~2017-07-31 14:21] MED LIST changes: +HALDOL2 MG PO; +IBUPROFEN600 MG PO; +WARFARIN SODIUM2 MG PO
[2017-07-31 15:14] LABS: EOSINOPHIL COUNT 0.2 K/uL (0-0.3); IMMATURE GRANULOCYTE (%) 0.3 % (0.0-0.7); INSTRUMENT ABS NEUTROPHIL CT 3.8 K/uL; MCH 29.6 PG (29.0-34.0); MCHC 32.3 G/DL (30.0-36.0); MCV 91.8 FL (83-99); MONOCYTE (%) 8.7 % (3-12); MONOCYTE COUNT 0.6 K/uL (0-0.8); NEUTROPHIL (%) 57.1 % (45-76); NEUTROPHIL COUNT 3.8 K/uL (1.8-6.4); RBC DIS.WIDTH-CV 13.9 % (11.8-14.6); RBC DIS.WIDTH-SD 46.9 % (39-53); RED BLOOD COUNT 4.25 M/uL (3.80-5.20); WHITE BLOOD COUNT 6.7 K/uL (4.1-10.2)
[2017-07-31 15:21] LABS: CHLORIDE 111 mEq/L (99-109); POTASSIUM 4.2 mEq/L (3.7-5.4); SODIUM 141 mEq/L (136-147)
[2017-07-31 15:23] LABS: GLUCOSE 109 mg/dL (70-99)
[2017-07-31 15:24] LABS: ANION GAP 7 MEQ/L (2-14)
[2017-07-31 15:25] LABS: TOTAL BILIRUBIN 0.5 mg/dL (0.0-1.0)
[2017-07-31 15:26] LABS: ALKALINE PHOSPHATASE 69 IU/L (3-129)
[2017-07-31 15:27] LABS: GFR ESTIMATE (CALCULATED) 45 mL/min/
[2017-07-31 15:28] LABS: UREA NITROGEN (BUN) 37 mg/dL (9-23)
[2017-07-31 15:32] LABS: TROP-I INTERPRETATION NEGATIVE; TROPONIN-I < 0.01 ng/mL (0.0-0.30)
[2017-07-31 16:04] LABS: ADD MIUA? YES; BILIRUBIN NEGATIVE; BLOOD SMALL; GLUCOSE (STRIP) NEGATIVE; KETONES NEGATIVE; LEUKOCYTES LARGE; NITRITE NEGATIVE; PROTEIN (STRIP) 30; SPECIFIC GRAVITY 1.016 (1.000-1.030); UROBILINOGEN 0.2 MG/DL (0.2-1.0)
[2017-07-31 16:08] LABS: COLOR YELLOW ((YELLOW))
[2017-07-31 16:24] LABS: CASTS NONE SEEN /LPF; EPITHELIAL CELLS 4+ /HPF; MUCUS NONE SEEN /LPF
[2017-07-31 16:25] LABS: BACTERIA 2+ /HPF; RED BLOOD CELLS 0-5 /HPF (0-5); WHITE BLOOD CELLS 40-50 /HPF (0-5)
[2017-07-31 17:14] LABS: MEAN PLAT.VOLUME 11.1 uM^3 (9.5-12.4); PLAT.SUFFICIENCY ADEQUATE
[2017-07-31 17:21] LABS: PLATELET COUNT 157 K/uL (156-360)
[2017-07-31] MEDS ORDERED: HALDOL1 MG PO (17:50)
[2017-07-31] MEDS ORDERED: TRAMADOL HCL50 MG PO (20:19)
[2017-07-31 20:51] VITALS: BP 117/58
[2017-07-31 23:59] VITALS: BP 101/55
[2017-08-01 06:44] LABS: ANION GAP 8 MEQ/L (2-14); CHLORIDE 111 MEQ/L (99-109); GFR ESTIMATE (CALCULATED) 50 mL/min/; GLUCOSE 94 mg/dL (70-99); POTASSIUM 4.1 MEQ/L (3.7-5.4); SAMPLE HEMOLYSIS CHECK 0; SAMPLE ICTERIC CHECK 0; SAMPLE LIPEMIA CHECK 0; SODIUM 142 MEQ/L (136-147); UREA NITROGEN (BUN) 35 mg/dL (9-23)
[2017-08-01 08:00] VITALS: BP 88/74
[2017-08-01 11:44] VITALS: BP 104/57
[2017-08-01 11:46] VITALS: BP 141/83
[2017-08-01 15:56] VITALS: BP 115/66
[2017-08-01 19:45] VITALS: BP 139/62
[2017-08-02 11:02] LABS: BASOPHIL COUNT 0.1 K/uL (0-0.1); EOSINOPHIL (%) 4.7 % (0-5); EOSINOPHIL COUNT 0.3 K/uL (0-0.3); HEMATOCRIT 37.5 % (36.0-46.0); IMMATURE GRANULOCYTE (%) 0.2 % (0.0-0.7); INSTRUMENT ABS NEUTROPHIL CT 3.4 K/uL; LYMPHOCYTE COUNT 1.6 K/uL (1.0-2.8); MCH 29.2 PG (29.0-34.0); MCHC 31.7 G/DL (30.0-36.0); MCV 92.1 FL (83-99); MEAN PLAT.VOLUME 10.9 uM^3 (9.5-12.4); MONOCYTE COUNT 0.5 K/uL (0-0.8); NEUTROPHIL (%) 58.8 % (45-76); NEUTROPHIL COUNT 3.4 K/uL (1.8-6.4); PLATELET COUNT 154 K/uL (156-360); RBC DIS.WIDTH-CV 13.8 % (11.8-14.6); RBC DIS.WIDTH-SD 47.5 % (39-53); RED BLOOD COUNT 4.07 M/uL (3.80-5.20); WHITE BLOOD COUNT 5.8 K/uL (4.1-10.2)
[2017-08-02 11:37] LABS: ANION GAP 9 MEQ/L (2-14); CHLORIDE 111 MEQ/L (99-109); GFR ESTIMATE (CALCULATED) 50 mL/min/; GLUCOSE 104 mg/dL (70-99); SAMPLE HEMOLYSIS CHECK 0; SAMPLE ICTERIC CHECK 0; SAMPLE LIPEMIA CHECK 0; SODIUM 141 MEQ/L (136-147); UREA NITROGEN (BUN) 31 mg/dL (9-23)
[2017-08-02 16:00] VITALS: BP 109/62
[2017-08-02 20:00] VITALS: BP 120/68
[2017-08-02 22:48] VITALS: BP 125/66
[2017-08-03] MEDS ORDERED: MECLIZINE HCL25 MG PO (12:47)
[2017-08-03] MEDS ORDERED: ANECREAM30 GM TP (12:47)
[2017-08-03] MEDS ORDERED: HYDROCORTISONE30 G2 PR (12:47)
[2017-08-03] MEDS ORDERED: HALDOL1 MG PO (12:47)
[2017-08-03] MEDS ORDERED: TRAMADOL HCL50 MG PO (12:47)
[2017-08-03] MEDS ORDERED: HALDOL2 MG PO ×2 (12:47→12:48)
[2017-08-03] MEDS ORDERED: BACTRIM,SEPT1 TABLET PO (12:51)
[2017-08-03 17:13] VITALS: BP 142/89
[2017-08-03 19:55] VITALS: BP 110/53
[2017-08-03 23:48] VITALS: BP 110/59
[2017-08-04 07:59] VITALS: BP 144/72
[2017-08-04 13:15] VITALS: BP 124/77
[2017-08-04 20:00] VITALS: BP 118/65
[2017-08-04 23:09] VITALS: BP 147/72
[2017-08-05 08:12] VITALS: BP 185/93
[2017-08-05 12:16] VITALS: BP 126/61
== END 2017-08-05 14:52 ==
LOC: EME 14:21 → EDOF 17:14 → 5WEST 17:14 → ENRESERV 17:21 → 5WEST 19:08
PROVIDERS: Emergency Medicine; Family Medicine
DX: N39.0 Urinary tract infection, site not specified (principal); B96.20 Unspecified Escherichia coli [E. coli] as the cause of diseases classified elsewhere; K64.5 Perianal venous thrombosis; K64.8 Other hemorrhoids; K64.4 Residual hemorrhoidal skin tags; F03.91 Unspecified dementia, unspecified severity, with behavioral disturbance; R45.1 Restlessness and agitation; F41.9 Anxiety disorder, unspecified; M19.90 Unspecified osteoarthritis, unspecified site; M79.89 Other specified soft tissue disorders; R26.9 Unspecified abnormalities of gait and mobility; E86.0 Dehydration; Z86.718 Personal history of other venous thrombosis and embolism; E03.9 Hypothyroidism, unspecified; E66.9 Obesity, unspecified; K59.00 Constipation, unspecified; Z98.890 Other specified postprocedural states; Z96.651 Presence of right artificial knee joint; I11.0 Hypertensive heart disease with heart failure; I50.9 Heart failure, unspecified; K21.9 Gastro-esophageal reflux disease without esophagitis; G89.29 Other chronic pain
CPT/HCPCS: 71010; 80048; 80053; 81003; 84484; 85025; 97530 GP; 99281; 99285; G0378; G8978 CL; G8979 CJ; G8980 GP CL; G8987 GO CL; G8988 GO CK; G8989 GO CL; J0696; J7030

== ENCOUNTER 2017-08-14 10:53 | Emergency (ER) | payer OTHER ==
[~2017-08-14] VITALS: Ht 165.1 cm; Wt 110.7 kg
[~2017-08-14 10:53] MED LIST changes: +ANECREAM30 GM TP; +BACTRIM,SEPT1 TABLET PO; +HALDOL1 MG PO; +HYDROCORTISONE30 G2 PR
[2017-08-14 11:33] LABS: BASOPHIL COUNT 0.1 K/uL (0-0.1); EOSINOPHIL (%) 3.2 % (0-5); EOSINOPHIL COUNT 0.3 K/uL (0-0.3); HEMATOCRIT 37.1 % (36.0-46.0); IMMATURE GRANULOCYTE (%) 0.4 % (0.0-0.7); INSTRUMENT ABS NEUTROPHIL CT 5.4 K/uL; LYMPHOCYTE COUNT 1.9 K/uL (1.0-2.8); MCH 29.4 PG (29.0-34.0); MCHC 32.6 G/DL (30.0-36.0); MCV 90.3 FL (83-99); MEAN PLAT.VOLUME 10.8 uM^3 (9.5-12.4); MONOCYTE (%) 9.6 % (3-12); MONOCYTE COUNT 0.8 K/uL (0-0.8); NEUTROPHIL (%) 63.9 % (45-76); NEUTROPHIL COUNT 5.4 K/uL (1.8-6.4); RBC DIS.WIDTH-CV 14.9 % (11.8-14.6); RBC DIS.WIDTH-SD 49.1 % (39-53); RED BLOOD COUNT 4.11 M/uL (3.80-5.20); WHITE BLOOD COUNT 8.4 K/uL (4.1-10.2)
[2017-08-14 11:42] LABS: PLATELET COUNT 227 K/uL (156-360)
[2017-08-14 11:43] LABS: CHLORIDE 115 mEq/L (99-109); POTASSIUM 3.5 mEq/L (3.7-5.4); SODIUM 143 mEq/L (136-147)
[2017-08-14 11:45] LABS: GLUCOSE 134 mg/dL (70-99)
[2017-08-14 11:46] LABS: ANION GAP 10 MEQ/L (2-14)
[2017-08-14 11:49] LABS: GFR ESTIMATE (CALCULATED) 41 mL/min/
[2017-08-14 11:50] LABS: UREA NITROGEN (BUN) 46 mg/dL (9-23)
[2017-08-14 14:45] VITALS: BP 104/78
== END 2017-08-14 16:43 ==
LOC: EME 10:53
PROVIDERS: Emergency Medicine
DX: R19.7 Diarrhea, unspecified (principal); E86.0 Dehydration; F03.90 Unspecified dementia, unspecified severity, without behavioral disturbance, psychotic disturbance, mood disturbance, and anxiety; M79.601 Pain in right arm; Z91.81 History of falling; M43.8X2 Other specified deforming dorsopathies, cervical region; M47.892 Other spondylosis, cervical region; M40.292 Other kyphosis, cervical region; K62.6 Ulcer of anus and rectum; I10 Essential (primary) hypertension; Z87.440 Personal history of urinary (tract) infections; Z86.718 Personal history of other venous thrombosis and embolism
CPT/HCPCS: 70450; 72125; 80048; 85025; 99281; 99285; J7030

== ENCOUNTER 2017-11-06 10:06 | Emergency (ER) | payer OTHER ==
[~2017-11-06] VITALS: Ht 177.8 cm; Wt 112.9 kg
[2017-11-06 10:57] LABS: BASOPHIL (%) 0.7 % (0-1); BASOPHIL COUNT 0.1 K/uL (0-0.1); EOSINOPHIL (%) 2.6 % (0-5); EOSINOPHIL COUNT 0.2 K/uL (0-0.3); HEMATOCRIT 33.8 % (36.0-46.0); HEMOGLOBIN 11.1 G/DL (11.9-15.5); IMMATURE GRANULOCYTE (%) 0.5 % (0.0-0.7); LYMPHOCYTE (%) 19.8 % (15-42); LYMPHOCYTE COUNT 1.6 K/uL (1.0-2.8); MCH 31.3 PG (29.0-34.0); MCHC 32.8 G/DL (30.0-36.0); MCV 95.2 FL (83-99); MONOCYTE (%) 7.7 % (3-12); MONOCYTE COUNT 0.6 K/uL (0-0.8); NEUTROPHIL (%) 68.7 % (45-76); NEUTROPHIL COUNT 5.7 K/uL (1.8-6.4); PLATELET COUNT 231 K/uL (156-360); RBC DIS.WIDTH-CV 14.9 % (11.8-14.6); RBC DIS.WIDTH-SD 52.3 % (39-53); RED BLOOD COUNT 3.55 M/uL (3.80-5.20); WHITE BLOOD COUNT 8.2 K/uL (4.1-10.2)
[2017-11-06 11:06] LABS: ALBUMIN 2.3 g/dL (3.2-4.8)
[2017-11-06 11:07] LABS: CHLORIDE 110 mEq/L (99-109); POTASSIUM 3.2 mEq/L (3.7-5.4); SODIUM 141 mEq/L (136-147)
[2017-11-06 11:09] LABS: GLUCOSE 123 mg/dL (70-99); TOTAL PROTEIN 4.8 g/dL (6.4-8.3)
[2017-11-06 11:11] LABS: TOTAL BILIRUBIN 0.4 mg/dL (0.0-1.0)
[2017-11-06 11:12] LABS: ALKALINE PHOSPHATASE 78 IU/L (3-129)
[2017-11-06 11:13] LABS: CREATININE 0.8 mg/dL (0.6-1.3); GFR ESTIMATE (CALCULATED) > 59 mL/min/
[2017-11-06 11:14] LABS: AST (GOT) 12 IU/L (2-34); UREA NITROGEN (BUN) 15 mg/dL (9-23)
[2017-11-06 11:16] LABS: ALT (GPT) 5 IU/L (3-49); LIPASE 8 U/L (1.0-51.0)
[2017-11-06] MEDS ORDERED: AUGMENTIN875 MG PO (13:28)
[2017-11-06 13:39] LABS: C DIFF TOXIN NEGATIVE (NEGATIVE)
[2017-11-06 17:25] VITALS: BP 95/72
== END 2017-11-06 17:30 | disposition home or self-care (01) ==
LOC: EME → EDBD 10:06 → EME 17:30
PROVIDERS: Emergency Medicine
DX: K29.70 Gastritis, unspecified, without bleeding (principal); J32.9 Chronic sinusitis, unspecified; K57.30 Diverticulosis of large intestine without perforation or abscess without bleeding; R94.31 Abnormal electrocardiogram [ECG] [EKG]; R93.0 Abnormal findings on diagnostic imaging of skull and head, not elsewhere classified; K21.9 Gastro-esophageal reflux disease without esophagitis; I11.0 Hypertensive heart disease with heart failure; I50.9 Heart failure, unspecified; M79.7 Fibromyalgia; F03.90 Unspecified dementia, unspecified severity, without behavioral disturbance, psychotic disturbance, mood disturbance, and anxiety; Z79.01 Long term (current) use of anticoagulants; Z86.718 Personal history of other venous thrombosis and embolism; Z90.49 Acquired absence of other specified parts of digestive tract; Z88.5 Allergy status to narcotic agent
CPT/HCPCS: 70450; 71045; 74177; 80053; 81003; 83690; 85025; 87493; 93005; 99281; 99284; J1885; J2405; J3010; J7030; J7040

== ENCOUNTER 2018-03-11 20:50 | Emergency (ER) | payer OTHER ==
[~2018-03-11] VITALS: Ht 165.1 cm; Wt 92.2 kg
[~2018-03-11 20:50] MED LIST changes: +AUGMENTIN875 MG PO
[2018-03-12 03:47] VITALS: BP 113/73
== END 2018-03-12 03:47 | disposition home or self-care (01) ==
LOC: EME 20:50
DX: S12.110A Anterior displaced Type II dens fracture, initial encounter for closed fracture (principal); M25.512 Pain in left shoulder; M41.9 Scoliosis, unspecified; W06.XXXA Fall from bed, initial encounter; F03.90 Unspecified dementia, unspecified severity, without behavioral disturbance, psychotic disturbance, mood disturbance, and anxiety; I11.0 Hypertensive heart disease with heart failure; I50.9 Heart failure, unspecified; M79.7 Fibromyalgia; K21.9 Gastro-esophageal reflux disease without esophagitis; Z86.718 Personal history of other venous thrombosis and embolism; Z90.49 Acquired absence of other specified parts of digestive tract; Z88.5 Allergy status to narcotic agent
CPT/HCPCS: 70450; 72125; 73030